=== PATIENT | male | born 1985 | race Caucasian/White ===

== ENCOUNTER 2017-02-07 11:21 | Inpatient (IN) | payer OTHER ==
[~2017-02-07] VITALS: Ht 175.2 cm; Wt 87.6 kg
[2017-02-07 12:32] VITALS: BP 150/86
--- NOTE | 2017-02-07 12:40 | NUR ---
Time: 0 A 31 year old MALE admitted to under services of SULEIMAN GUTIÉRREZ DO. Pt. arrived via ambulatory from [place]. Chief complaint: OPIATE WITHDRAWAL. BRYCE HUGHES
[2017-02-07 13:00] VITALS: BP 150/86
[2017-02-07 13:33] LABS: BASO % 0.3 % (0.0-1.0); EOS % 0.2 % (1.0-4.0); HEMATOCRIT 48.2 % (42.0-52.0); HEMOGLOBIN 17.3 g/dl (14.0-18.0); LYMPH # 1.7 10*3/uL (1.3-4.4); LYMPH % 27.5 % (27.0-41.0); MEAN CELL VOLUME 84.6 fl (80.0-94.0); MEAN CORPUSCULAR HGB 30.4 pg (27.0-31.0); MEAN CORPUSCULAR HGB CONC 35.9 g/dl (33.0-37.0); MEAN PLATELET VOLUME 8.5 fl (9.6-12.3); MONO # 0.6 10*3/uL (0.1-1.0); MONO % 9.3 % (3.0-9.0); NEUT # 3.8 10*3/uL (2.3-7.9); NEUT % 62.5 % (47.0-73.0); PLATELET COUNT AUTOMATED 208 10*3/uL (130-400); RED CELL DISTRI WIDTH 12.5 % (0-14.5); WHITE BLOOD COUNT 6.1 10*3/uL (4.8-10.8)
[2017-02-07 13:41] LABS: BILIRUBIN NEGATIVE (NEGATIVE); BLOOD NEGATIVE (NEGATIVE); CLARITY CLEAR (CLEAR); COLOR YELLOW (YELLOW); GLUCOSE NEGATIVE (NEGATIVE); KETONE NEGATIVE (NEGATIVE); LEUKO ESTERASE NEGATIVE (NEGATIVE); NITRITE NEGATIVE (NEGATIVE); PH 7.5 (5.0-9.0); SPECIFIC GRAVITY <= 1.005 (1.005-1.030); UROBILINOGEN 0.2 E.U./dl (0.2-1.0)
[2017-02-07 13:49] LABS: ALBUMIN 4.2 gm/dl (3.1-4.5); ALKALINE PHOSPHATASE 110 U/L (45-117); BUN 1 mg/dl (7-24); CHLORIDE 102 mmol/L (98-107); POTASSIUM 3.8 mmol/L (3.5-5.1); SGOT/AST 21 IU/L (3-35); SGPT/ALT 34 U/L (12-78); SODIUM 137 mmol/L (136-145); TOTAL PROTEIN 8.5 gm/dL (6.4-8.2)
--- NOTE | 2017-02-07 13:51 | NUR ---
PATIENT WANTS TO FOLLOW-UP WITH [facility] FOR THE VIVITROL SHOT FOR HIS AFTERCARE PLAN. BARRY PINA B.A. GANG BORE OPERATOR
[2017-02-07 13:58] LABS: WBC 0-2 wbc/hpf (0-5)
[2017-02-07 16:00] VITALS: BP 146/86
--- NOTE | 2017-02-07 16:20 | NUR ---
PATIENT CINA =21 BARRY PINA B.A. PSS DELIVERY PROFESSIONAL
[2017-02-07 16:45] LABS: URINE AMPHETAMINES < 1000 (1000ng/ml); URINE BARBITURATES < 200 (200ng/ml); URINE BENZODIAZEPINES < 200 (200ng/ml); URINE CANNABINOIDS (THC) < 50 (50ng/ml); URINE COCAINE < 300 (300ng/ml); URINE METHADONE < 300 (300ng/ml); URINE OPIATES < 300 (300ng/ml)
[2017-02-07 16:47] LABS: URINE PHENCYCLIDINE < 25 (25ng/ml)
--- NOTE | 2017-02-07 19:30 | NUR ---
PATIENT RESTING IN BED. PATIENT DENIES ANY PAIN OR DISCOMFORT UPON ASSESSMENT. PATIENT DENIES ANY TREMORS, CHILLS OR OTHER SIGNS OF DT'S AT THIS TIME. ALERT AND ORIENTED X3, CALL LIGHT WITHIN REACH. SEE ASSESSMENT.
--- NOTE | 2017-02-07 23:32 | NUR ---
SCHEDULED DOSE OF SUBUTEX GIVEN. PATIENT ALSO GIVEN ZOFRAN AND ROBAXIN PER PT REQUEST FOR NAUSEA AND MUSCLE CRAMPING. WILL CONTINUE TO MONITOR.
[2017-02-08] VITALS: BP 158/90
--- NOTE | 2017-02-08 00:32 | NUR ---
PRN MEDICATIONS EFFECTIVE. PATIENT DENIES ANY NAUSEA OR CRAMPING AT THIS TIME. WILL CONTINUE TO MONITOR.
--- NOTE | 2017-02-08 06:27 | NUR ---
PATIENT RESTING COMFORTABLY IN BED. PATIENT VERBALIZES BEING ABLE TO SLEEP T/O THE NIGHT WITHOUT INTERRUPTION. PATIENT DENIES ANY S&S OF DETOX AND DENIES PAIN OR DISCOMFORT ON ASSESSMENT. NO FURTHER REQUEST AT THIS TIME. CALL LIGHT WITHIN REACH. SEE ASSESSMENT.
[2017-02-08 07:59] VITALS: BP 140/94
[2017-02-08 12:00] VITALS: BP 147/87
[2017-02-08 16:00] VITALS: BP 137/87
[2017-02-08 20:00] VITALS: BP 138/87
--- NOTE | 2017-02-08 21:14 | NUR ---
PATIENT RESTING IN BED WITH FAMILY AT THE BEDSIDE. PATIENT JAZMÍN ANY PAIN, DISCOMFORT UPON ASSESSMENT. PATIENT IS ALERT AND ORIENTED AND AMBULATORY WITHOUT ASSIST. CALL LIGHT WITHIN REACH. HOB ELEVATED, NO FURTHER REQUESTS AT THIS TIME. SEE ASSESSMENT.
[2017-02-09] VITALS: BP 127/69
[2017-02-09 08:00] VITALS: BP 127/73
[2017-02-09 16:00] VITALS: BP 149/87
[2017-02-09 20:00] VITALS: BP 150/91
--- NOTE | 2017-02-09 20:00 | NUR ---
SCHEDULED DOES OF SUBUTEX GIVEN. LAST DOSE SCHEDULED FOR 0800 TOMORROW.
--- NOTE | 2017-02-09 21:59 | NUR ---
PATIENT RESTING COMFORTABLY IN BED. PATIENT HAD VISITORS UPON ASSESSMENT. PATIENT DENIES ANY PAIN, DISCOMFORT AT THIS TIME. PATIENT VERBALIZES BEING ABLE TO SLEEP BETTER AT NIGHTS AND DENIES ANY S&S OF DT'S. NO FURTHER REQUESTS AT THIS TIME. CALL LIGHT WITHIN REACH. SEE ASSESSMENT.
[2017-02-10] VITALS: BP 143/79
[2017-02-10 06:06] LABS: BASO % 0.5 % (0.0-1.0); EOS # 0.3 10*3/uL (0.0-0.4); EOS % 4.8 % (1.0-4.0); HEMATOCRIT 43.4 % (42.0-52.0); HEMOGLOBIN 15.2 g/dl (14.0-18.0); LYMPH # 2.3 10*3/uL (1.3-4.4); LYMPH % 40.5 % (27.0-41.0); MEAN CELL VOLUME 87.1 fl (80.0-94.0); MEAN CORPUSCULAR HGB 30.5 pg (27.0-31.0); MEAN PLATELET VOLUME 8.9 fl (9.6-12.3); MONO # 0.6 10*3/uL (0.1-1.0); MONO % 9.8 % (3.0-9.0); NEUT # 2.5 10*3/uL (2.3-7.9); PLATELET COUNT AUTOMATED 171 10*3/uL (130-400); RED BLOOD COUNT 4.98 10*6/uL (4.50-5.90); RED CELL DISTRI WIDTH 12.5 % (0-14.5); WHITE BLOOD COUNT 5.6 10*3/uL (4.8-10.8)
[2017-02-10 08:00] VITALS: BP 131/81
--- NOTE | 2017-02-10 08:06 | NUR ---
Shift chart check completed.
--- NOTE | 2017-02-10 10:15 | NUR ---
PATIENT RESTING IN BED. DENIES ANY ANXIETY OR CONCERN AT THIS TIME. NO DISTRESS NOTED. WILL CONTINUE TO MONITOR.
[2017-02-10] MEDS ORDERED: REQUIP0.5 MG PO (13:56)
[2017-02-10] MEDS ORDERED: ATARAX,VISTARIL50 MG PO (13:56)
[2017-02-10] MEDS ORDERED: Zofran4 MG SL (13:56)
--- NOTE | 2017-02-10 14:30 | NUR ---
WENT OVER D/C INSTRUCTIONS WITH PATIENT. PATIENT GIVEN 3 SCRIPTS. PATIENT VERBALIZED UNDERSTANDING OF FOLLOWING UP WITH A FACILITY FOR HIS VIVITROL SHOT. PATIENT AMBULATED TO EXIT. PATIENT IS D/C HOME
== END 2017-02-10 14:24 | disposition home or self-care (01) | DRG 897 ==
LOC: 5E 11:21
PROVIDERS: Registered Nurse; ADMIT Internal Medicine
DX: F11.23 Opioid dependence with withdrawal (principal); F10.10 Alcohol abuse, uncomplicated; F41.9 Anxiety disorder, unspecified; F17.210 Nicotine dependence, cigarettes, uncomplicated; Z71.6 Tobacco abuse counseling; Z82.49 Family history of ischemic heart disease and other diseases of the circulatory system; Z79.899 Other long term (current) drug therapy

== ENCOUNTER 2019-03-13 12:41 | Inpatient (IN) | payer OTHER ==
[~2019-03-13] VITALS: Ht 175.2 cm; Wt 84.6 kg
[~2019-03-13 12:41] MED LIST: ATARAX,VISTARIL50 MG PO; REQUIP0.5 MG PO; Zofran4 MG SL
[2019-03-13 14:15] VITALS: BP 142/75
--- NOTE | 2019-03-13 14:36 | NUR ---
MSADMTime: N A 33 year old MALE admitted to under services of LADI RICE DO. Pt. arrived via ambulatory from [place]. Chief complaint: OPIATE WITHDRAWAL. PATRICK HO
--- NOTE | 2019-03-13 15:07 | NUR ---
REQUIP GIVEN FOR C/O RESTLESS LEGS, ROBAXIN GIVEN FRO C/O NUSCLE ACHES. WILL MONITOR.
[2019-03-13 15:08] LABS: BASO % 0.4 % (0.0-1.0); EOS # 0.1 10*3/uL (0.0-0.4); EOS % 0.7 % (1.0-4.0); HEMATOCRIT 45.9 % (42.0-52.0); LYMPH # 1.5 10*3/uL (1.3-4.4); LYMPH % 18.5 % (27.0-41.0); MEAN CELL VOLUME 84.1 fl (80.0-94.0); MEAN CORPUSCULAR HGB 29.3 pg (27.0-31.0); MEAN CORPUSCULAR HGB CONC 34.9 g/dl (33.0-37.0); MEAN PLATELET VOLUME 8.6 fl (9.6-12.3); MONO # 0.4 10*3/uL (0.1-1.0); MONO % 4.9 % (3.0-9.0); NEUT # 6.2 10*3/uL (2.3-7.9); NEUT % 74.9 % (47.0-73.0); PLATELET COUNT AUTOMATED 300 10*3/uL (130-400); RED BLOOD COUNT 5.46 10*6/uL (4.50-5.90); RED CELL DISTRI WIDTH 11.7 % (0-14.5); WHITE BLOOD COUNT 8.2 10*3/uL (4.8-10.8)
[2019-03-13 15:22] LABS: ALBUMIN 3.6 gm/dl (3.1-4.5); ALKALINE PHOSPHATASE 94 U/L (45-117); BUN 5 mg/dl (7-24); CHLORIDE 111 mmol/L (98-107); CREATININE 0.67 mg/dL (0.70-1.30); PHOSPHOROUS 2.5 mg/dL (2.5-4.9); POTASSIUM 4.5 mmol/L (3.5-5.1); SGOT/AST 19 IU/L (3-35); SGPT/ALT 30 U/L (12-78); SODIUM 140 mmol/L (136-145); TOTAL PROTEIN 7.8 gm/dL (6.4-8.2)
--- NOTE | 2019-03-13 15:30 | NUR ---
PATIENT MEETS [facility]. CINA =19. PATIENT IS WANTING TO GO TO [facility] FOR HIS AFTERCARE PLAN. BARRY PINA B.A. UNDERGROUND DRILL OPERATOR
[2019-03-13 16:00] VITALS: BP 136/72
--- NOTE | 2019-03-13 16:10 | NUR ---
REQUIP AND ROBAXIN EFFECTIVE PER PT.
[2019-03-13 16:50] LABS: URINE AMPHETAMINES < 1000 (1000ng/ml); URINE BARBITURATES < 200 (200ng/ml); URINE BENZODIAZEPINES < 200 (200ng/ml); URINE CANNABINOIDS (THC) < 50 (50ng/ml); URINE COCAINE < 300 (300ng/ml); URINE METHADONE < 300 (300ng/ml); URINE OPIATES < 300 (300ng/ml)
[2019-03-13 16:53] LABS: URINE PHENCYCLIDINE < 25 (25ng/ml)
[2019-03-13 20:00] VITALS: BP 135/79
[2019-03-14] VITALS: BP 150/94
--- NOTE | 2019-03-14 07:15 | NUR ---
ARRIVED ON SHIFT, INTRODUCED TO PATIENT,NO NEEDS VOICED AT THIS TIME, WHITE BOARD UPDATED.
[2019-03-14 08:00] VITALS: BP 130/78
--- NOTE | 2019-03-14 08:00 | NUR ---
PATIENT C/O OF CRAMPING AND SPASMS IN BOTH LEGS, MEDICATED WITH ROBAXIN ORDERED.
--- NOTE | 2019-03-14 08:49 | NUR ---
Shift chart check completed.
--- NOTE | 2019-03-14 09:00 | NUR ---
PATIENT REPORTS GOOD RELIEF FROM ROBAXIN GIVEN X 1 HOURNAGO.
[2019-03-14 12:00] VITALS: BP 128/91
[2019-03-14 16:00] VITALS: BP 129/68
--- NOTE | 2019-03-14 16:14 | NUR ---
PATIENT IS GOING TO FOLLOW UP WITH [facility] IN [place]. PATIENT APPOINTMENT IS SCHEDULED FOR SUNDAY,February AT NOON. PATIENT AGREES AND UNDERSTANDS HIS AFTERCARE PLAN. PATIENT REPORTS THAT HE HAS TRANSPORTATION HOME. BARRY PINA B.A. CEMENT STORAGE WORKER
--- NOTE | 2019-03-14 17:00 | NUR ---
PATIENT C/O OF NAUSEA, MEDICATED WITH ZOFRAN ORDERED PRN.
--- NOTE | 2019-03-14 19:58 | NUR ---
PATIENT REQUESTED SOMETHING TO HELP WITH LEG CRAMPS/PAIN, ROBAXIN AND MOTRIN GIVEN. WILL MONITOR AND REASSESS.
[2019-03-14 20:00] VITALS: BP 138/76
--- NOTE | 2019-03-14 22:42 | NUR ---
ROBAXIN AND MOTRIN EFFECTIVE FOR LEG CRAMPS/PAIN.
--- NOTE | 2019-03-14 22:58 | NUR ---
TRAZADONE GIVEN TO HELP PATIENT SLEEP. WILL MONITOR AND REASSESS.
[2019-03-15] VITALS: BP 145/81
[2019-03-15 08:00] VITALS: BP 134/83
[2019-03-15 12:00] VITALS: BP 122/51
[2019-03-15 16:00] VITALS: BP 110/80
--- NOTE | 2019-03-15 17:10 | NUR ---
MEDICATED WITH MOTRIN AND ROBAXIN PER ORDERS AND REQUEST.
--- NOTE | 2019-03-15 18:12 | NUR ---
PATIENT IS LEAVING AMA. DR. TA AND TITLE INVESTIGATOR AWARE.
== END 2019-03-15 18:12 | disposition left against medical advice (07) | DRG 770 ==
LOC: 5E 12:41
PROVIDERS: Student in an Organized Health Care Education/Training Program; ADMIT Internal Medicine
DX: F11.23 Opioid dependence with withdrawal (principal); E83.41 Hypermagnesemia; G25.81 Restless legs syndrome; E66.3 Overweight; Z53.29 Procedure and treatment not carried out because of patient's decision for other reasons; Z71.6 Tobacco abuse counseling; Z79.899 Other long term (current) drug therapy; Z68.27 Body mass index [BMI] 27.0-27.9, adult

== ENCOUNTER 2020-02-27 09:20 | Emergency (ER) | payer OTHER ==
[~2020-02-27] VITALS: Wt 88.5 kg
[2020-02-27 10:14] LABS: BASO % 0.5 % (0.0-1.0); EOS # 0.3 10*3/uL (0.0-0.4); HEMATOCRIT 40.2 % (42.0-52.0); LYMPH # 2.1 10*3/uL (1.3-4.4); LYMPH % 38.9 % (27.0-41.0); MEAN CELL VOLUME 85.5 fl (80.0-94.0); MEAN CORPUSCULAR HGB 27.4 pg (27.0-31.0); MEAN CORPUSCULAR HGB CONC 32.1 g/dl (33.0-37.0); MEAN PLATELET VOLUME 8.3 fl (9.6-12.3); MONO # 0.5 10*3/uL (0.1-1.0); MONO % 8.4 % (3.0-9.0); NEUT # 2.5 10*3/uL (2.3-7.9); PLATELET COUNT AUTOMATED 240 10*3/uL (130-400); RED CELL DISTRI WIDTH 11.9 % (0-14.5); WHITE BLOOD COUNT 5.5 10*3/uL (4.8-10.8)
[2020-02-27 10:29] LABS: ALBUMIN 3.4 gm/dl (3.1-4.5); ALKALINE PHOSPHATASE 131 U/L (45-117); BUN 8 mg/dl (7-24); CHLORIDE 104 mmol/L (98-107); CREATININE 0.74 mg/dL (0.70-1.30); POTASSIUM 3.9 mmol/L (3.5-5.1); SGOT/AST 35 IU/L (3-35); SGPT/ALT 65 U/L (12-78); SODIUM 136 mmol/L (136-145)
[2020-02-27] MEDS ORDERED: ULTRAM50 MG PO (12:17)
[2020-02-27] MEDS ORDERED: KEFLEX500 M1 PO (12:17)
[2020-02-27] MEDS ORDERED: SEPTDS PO (12:17)
== END 2020-02-27 12:35 | disposition home or self-care (01) ==
LOC: ED 09:20
PROVIDERS: Internal Medicine
DX: L03.012 Cellulitis of left finger (principal)

== ENCOUNTER 2020-09-19 00:24 | Emergency (ER) | payer OTHER ==
[~2020-09-19] VITALS: Ht 182.8 cm; Wt 90.9 kg
[~2020-09-19 00:24] MED LIST changes: +KEFLEX500 M1 PO; +SEPTDS PO; +ULTRAM50 MG PO
[2020-09-19] MEDS ORDERED: SEPTDS PO (01:48)
[2020-09-21 05:06] LABS: HEPATITIS B SURFACE AG Negative (Negative)
[2020-09-24 16:08] LABS: HCV RNA NAA QUAL Negative (Negative)
== END 2020-09-19 02:05 ==
LOC: ED 00:24
PROVIDERS: Emergency Medicine
DX: L73.9 Follicular disorder, unspecified (principal); Z02.89 Encounter for other administrative examinations; F17.200 Nicotine dependence, unspecified, uncomplicated; Z79.2 Long term (current) use of antibiotics; Z79.899 Other long term (current) drug therapy